=== PATIENT | female | born 1930 | race Caucasian/White ===

== ENCOUNTER 2017-09-20 19:28 | Emergency (ER) | payer MEDICARE ==
[2017-09-20 20:59] LABS: #Basophils 0.1 thou/uL (0.0-0.2); #Eosinphils 0.4 thou/uL (0.0-0.7); #Monocytes 0.6 thou/uL (0.11-0.59); %Basophils 0.9 % (0.0-1.0); %Eosinophils 4.4 % (0.0-10.0); %Lymphocytes 24.6 % (21.0-51.0); %Monocytes 7.7 % (0.0-10.0); %Neutrophils 62.3 % (42.0-75.0); Hemoglobin 10.9 g/dL (12.0-16.0); Mean Corpuscular HGB CONC 33.3 g/dL (32.0-36.0); Mean Corpuscular Hemoglobin 30.8 pg (27.0-31.0); Mean Corpuscular Volume 92.2 fl (81.0-99.0); Mean Platelet Volume 6.9 fL (7.4-10.4); Platelet Count 322 thou/uL (130-400); RBC Distribution Width 12.6 % (11.5-14.5); Red Blood Cell (RBC) Count 3.55 mill/uL (4.20-5.40)
--- NOTE | 2017-09-20 21:07 | RAD ---
RIGHT SHOULDER TWO VIEWS: 09/20/17 HISTORY: Fall. There is a fracture involving the greater tuberosity and humeral neck and it appears to have a spiral type component that extends into the proximal humeral shaft. I am not certain whether this component may be related to an older injury. IMPRESSION: Greater tuberosity and humeral neck fracture. Also with a spiral type fracture of the proximal rocio l shaft. This part of the fracture may be older related to an older injury, although may be part of t he acute fracture. POS: [facility]
--- NOTE | 2017-09-20 21:10 | CT ---
CT OF BRAIN PERFORMED WITHOUT CONTRAST ENHANCEMENT: 09/20/17 HISTORY: Fall with head injury. There is generalized ventricular and sulcal prominence. There is decreased attenuation of the periven tricular white matter consistent with chronic white change. There is no signs of intracerebral hemorr adamaris or extra-axial fluid collections. Mastoid air cells and visualized sinuses are clear. IMPRESSION: No acute intracranial abnormality. POS: [facility]
[2017-09-20 21:17] LABS: ALT (SGPT) 14 U/L (8-55); AST (SGOT) 20 U/L (5-34); Albumin 4.2 g/dL (3.4-4.8); Alkaline Phosphatase 67 U/L (40-150); Anion Gap 14 mmol/L (10-20); BUN (Urea Nitrogen) 26 mg/dL (9.8-20.1); Bilirubin, Total 0.3 mg/dL (0.2-1.2); Calc. Creatinine Clearance 0 mL/min (70-130); Calcium 9.2 mg/dL (7.8-10.44); Carbon Dioxide 27 mmol/L (23-31); Chloride 104 mmol/L (98-107); Estimated GFR-MDRD 39; Globulin 2.8 g/dL (2.4-3.5); Glucose 145 mg/dL (83-110); Potassium 3.6 mmol/L (3.5-5.1); Sodium 141 mmol/L (136-145)
--- NOTE | 2017-09-20 21:38 | CT ---
CT OF CERVICAL SPINE PERFORMED WITHOUT CONTRAST ENHANCEMENT: 09/20/17 HISTORY: Neck pain status post fall. There is marked kyphotic deformity at the cervicothoracic junction. Bones are demineralized. Vertebra l bodies maintain fairly normal height. There is disc narrowing most pronounced at C5-6, C6-7 and C7- T1. There is anterolisthesis of C3 on C4, C4 on C5 and C5 on C6 which appears to be on the basis of d egenerative facet changes. There is no significant central canal stenosis and no CT evidence for frac ture. IMPRESSION: Marked arthritic changes of the spine. No acute injury. POS: [facility]
[2017-09-20] MEDS ORDERED: HYDROcodone/Acetaminophen 5/325 mg Tablet ONE (22:25)
== END 2017-09-20 22:14 | disposition home or self-care (01) ==
LOC: ERS 19:28
DX: S42.251A Displaced fracture of greater tuberosity of right humerus, initial encounter for closed fracture (principal); S42.211A Unspecified displaced fracture of surgical neck of right humerus, initial encounter for closed fracture; S42.341A Displaced spiral fracture of shaft of humerus, right arm, initial encounter for closed fracture; K21.9 Gastro-esophageal reflux disease without esophagitis; I10 Essential (primary) hypertension; W01.0XXA Fall on same level from slipping, tripping and stumbling without subsequent striking against object, initial encounter
CPT/HCPCS: 36415; 70450; 72125; 80053; 85025

== ENCOUNTER 2017-09-25 09:29 | Inpatient (IN) | payer MEDICARE ==
[2017-09-25] MEDS ORDERED: Fentanyl 100 MCG/2 ML VIAL ONE (09:53)
[2017-09-25] MEDS ORDERED: Lorazepam 2 MG/ML VIAL ONE (09:53)
[2017-09-25] MEDS ORDERED: Clindamycin/D5W 900 mg/50 ml Premix Bag ONE (09:53)
[2017-09-25 10:24] LABS: #Eosinphils 0.1 thou/uL (0.0-0.7); #Lymphocytes 1.6 thou/uL (1.20-3.40); #Monocytes 1.2 thou/uL (0.11-0.59); #Neutrophils 7.8 thou/uL (1.40-6.50); %Basophils 0.3 % (0.0-1.0); %Eosinophils 0.6 % (0.0-10.0); %Lymphocytes 15.4 % (21.0-51.0); %Neutrophils 72.8 % (42.0-75.0); Hemoglobin 8.5 g/dL (12.0-16.0); Mean Corpuscular HGB CONC 33.9 g/dL (32.0-36.0); Mean Corpuscular Hemoglobin 31.5 pg (27.0-31.0); Mean Corpuscular Volume 92.7 fl (81.0-99.0); Mean Platelet Volume 6.8 fL (7.4-10.4); Platelet Count 327 thou/uL (130-400); RBC Distribution Width 12.3 % (11.5-14.5); Red Blood Cell (RBC) Count 2.69 mill/uL (4.20-5.40); White Blood Cell (WBC) Count 10.6 thou/uL (4.8-10.8)
[2017-09-25 10:47] LABS: ALT (SGPT) 12 U/L (8-55); AST (SGOT) 16 U/L (5-34); Albumin 3.5 g/dL (3.4-4.8); Alkaline Phosphatase 52 U/L (40-150); Anion Gap 14 mmol/L (10-20); BUN (Urea Nitrogen) 25 mg/dL (9.8-20.1); Bilirubin, Total 0.9 mg/dL (0.2-1.2); Calc. Creatinine Clearance 0 mL/min (70-130); Calcium 8.8 mg/dL (7.8-10.44); Carbon Dioxide 25 mmol/L (23-31); Chloride 103 mmol/L (98-107); Estimated GFR-MDRD 44; Globulin 3.4 g/dL (2.4-3.5); Glucose 101 mg/dL (83-110); Potassium 3.8 mmol/L (3.5-5.1); Protein, Total 6.9 g/dL (6.0-8.3); Sodium 138 mmol/L (136-145)
--- NOTE | 2017-09-25 11:41 | PDOC.FPRHP ---
- History of Present Illness Chief Complaint: arm pain and redness History of Present Illness: Patient is an 87yo F who presents to ED after a fall on 09/20 where she sustained a humeral neck fracture. She had an outpatient appt scheduled with Dr. Asif tomorrow 09/26, but was having worsening pain and redness that started yesterday. History is provided by daughter at bedside, because patient was given Fentanyl by ED and is very drowsy at the time of interview. Daughter is not aware of any fevers at home, no N/V, or any other complaints reported to her. She reports at baseline, patient is able to perform ADLs on her own, AOx4 , and lives alone. She doesn't use any walking aid for mobility. ED Course: In the ED she was given Fentanyl 100mcg, 1mg Ativan, 500ml NS, and Clindamycin 900mg IV. - Allergies/Adverse Reactions Allergies Allergy/AdvReac Type Severity Reaction Status Date / Time Penicillins Allergy Unknown Rash Verified 01/14/16 16:12 - Home Medications Medication Instructions Recorded Confirmed Type Amlodipine Besylate [amLODIPine 5 mg PO DAILY 01/14/16 09/25/17 History Besylate] Aspirin [Aspirin EC] 81 mg PO DAILY 01/14/16 09/25/17 History Esomeprazole Magnesium [NexIUM] 40 mg PO DAILY 01/14/16 09/25/17 History Fenofibrate [Tricor] 48 mg PO HS 01/14/16 09/25/17 History Metoprolol Tartrate 12.5 mg PO BID 01/14/16 09/25/17 History Ca/D3/Mag/Zinc/Joana/Andrew/MgBor 1 tablet PO DAILY 09/25/17 09/25/17 History [Caltrate 600+D3+Minerals Chewable Tablet] Vit 75/Iron/Folic/Om3 1 each PO DAILY 09/25/17 09/25/17 History [One A Day DHA Pack] - History PMHx: 1. OA 2. Ringworm 3. Seasonal Allergies 4. Venous Insufficiency 5. CKD3 6. GERD 7. Mixed HLD 8. HTN PSHx: none FHx: noncontributory Social: Lives at home by herself. Gets around without cane or walker. Performs ADLs by herself. No hx of tobacco, alcohol, or drug use. PCP: Dr. Lichorad - Review of Systems General: denies: fever/chills, weight/appetite/sleep changes Eyes: denies: eye pain ENT: denies: nasal congestion, rhinorrhea Respiratory: denies: cough, congestion, shortness of breath Cardiovascular: denies: chest pain, palpitation Gastrointestinal: denies: nausea, vomiting, diarrhea Skin: reports: rashes, itching Musculoskeletal: reports: pain, tenderness, swelling, arthritis/arthralgias Neurological: denies: numbness, syncope, seizure, weakness Psychological: denies: anxiety, depression - Vital signs BP: 141/55 HR: 92 RR: 24 Tmax: 100.1 Pox: 99% on RA Wt: 43kg - Physical Exam -Constitutional: drowsy, arouses with moderate effort HEENT: normocephalic and atraumatic, MMM Neck: supple, FROM Chest: no-tender to palpation Heart: RRR, normal S1/S2 Lungs: CTAB, no respiratory distress, good air movement, no wheezing, no retractions Abdomen: soft, non-tender, bowel sounds present -Musculoskeletal: R arm in sling, significant echymosis along R shoulder and upper arm. R knee with R hematoma anteriorly and echymosis along posterior knee that is ttp. Neurological: no focal deficit -Skin: Erythematous well defined area on R anterior antecubital space and extending posteriorly and down lower arm. Warm to touch. No open wounds or drainage noted. -Psychiatric: drowsy FMR H&P: Results - Labs Result Diagrams: 09/25/17 10:08 09/25/17 10:08 Lab results: WBC 10.6 thou/uL (4.8-10.8) 09/25/17 10:08 Hgb 8.5 g/dL (12.0-16.0) L 09/25/17 10:08 Hct 24.9 % (36.0-47.0) L 09/25/17 10:08 MCV 92.7 fl (81.0-99.0) 09/25/17 10:08 Plt Count 327 thou/uL (130-400) 09/25/17 10:08 Neutrophils % 72.8 % (42.0-75.0) 09/25/17 10:08 Sodium 138 mmol/L (136-145) 09/25/17 10:08 Potassium 3.8 mmol/L (3.5-5.1) 09/25/17 10:08 Chloride 103 mmol/L (98-107) 09/25/17 10:08 Carbon Dioxide 25 mmol/L (23-31) 09/25/17 10:08 BUN 25 mg/dL (9.8-20.1) H 09/25/17 10:08 Creatinine 1.16 mg/dL (0.6-1.1) H 09/25/17 10:08 Glucose 101 mg/dL (83-110) 09/25/17 10:08 Lactic Acid 1.1 mmol/L (0.5-2.2) 09/25/17 10:08 Calcium 8.8 mg/dL (7.8-10.44) 09/25/17 10:08 Total Bilirubin 0.9 mg/dL (0.2-1.2) 09/25/17 10:08 AST 16 U/L (5-34) 09/25/17 10:08 ALT 12 U/L (8-55) 09/25/17 10:08 Alkaline Phosphatase 52 U/L (40-150) 09/25/17 10:08 Serum Total Protein 6.9 g/dL (6.0-8.3) 09/25/17 10:08 Albumin 3.5 g/dL (3.4-4.8) 09/25/17 10:08 - Radiology Interpretation Other Status: image reviewed by me, pending Additional comment: R elbow XR: report pending, but evidence of soft tissue swelling in antecubital skin area, no fractures noted R humerus: report pending, but shows healing nondisplaced humeral neck fracture , improved from XR on 09/20. FMR H&P: A/P - Problem List (1) Cellulitis Current Visit: No Status: Acute Code(s): L03.90 - CELLULITIS, UNSPECIFIED (2) Humeral fracture Current Visit: No Status: Acute Code(s): S42.309A - UNSP FRACTURE OF SHAFT OF HUMERUS, UNSP ARM, INIT (3) Knee pain Current Visit: No Status: Acute Code(s): M25.569 - PAIN IN UNSPECIFIED KNEE (4) History of recent fall Current Visit: No Status: Acute Code(s): Z91.81 - HISTORY OF FALLING (5) Hyperlipidemia Current Visit: No Status: Acute Code(s): E78.5 - HYPERLIPIDEMIA, UNSPECIFIED (6) Ringworm Current Visit: No Status: Acute Code(s): B35.9 - DERMATOPHYTOSIS, UNSPECIFIED (7) CKD (chronic kidney disease) stage 3, GFR 30-59 ml/min Current Visit: No Status: Acute Code(s): N18.3 - CHRONIC KIDNEY DISEASE, STAGE 3 (MODERATE) (8) GERD (gastroesophageal reflux disease) Current Visit: No Status: Acute Code(s): K21.9 - GASTRO-ESOPHAGEAL REFLUX DISEASE WITHOUT ESOPHAGITIS (9) HTN (hypertension) Current Visit: No Status: Acute Code(s): I10 - ESSENTIAL (PRIMARY) HYPERTENSION (10) Osteoarthritis Current Visit: No Status: Acute Code(s): M19.90 - UNSPECIFIED OSTEOARTHRITIS , UNSPECIFIED SITE - Plan Cellulitis - continue IV Clindamycin. Will sana area on skin to monitor for regression of erythema. - blood cultures pending - s/p 500ml NS, patient tolerating PO, no signs of sepsis at this time. Afebrile, normal WBC, and normal LA. - repeat CBC tomorrow R Humeral neck fx 2/2 recent fall - Consult ortho. Was to see Dr. Asif in clinic tomorrow. - PT/OT - Scheduled Tylenol for pain with IV morphine for breakthrough R Knee pain with Hematoma - XR to evaluate for possible knee fracture Anemia - likely 2/2 bleedign from recent trauma, evidenced by hematomas - start Fe 325 and Vit C as well as Colace Ringworm - being treated with Terbinafine outpatient, on day 13 of 14. - continue today and d/c tomorrow - no evidence on exam CKD3 - at baseline - continue home meds - avoid nephrotoxic agents GERD - continue home Nexium HLD - continue home Tricor and ASA HTN - continue home Metoprolol and Amlodipine - missed morning dose, evidenced by elevated pressure at this time - continue to monitor. OA - Continue home Tylenol for pain Dispo: Likely stay in the hospital for 2 days for IV abx. Plan to touch base with Dr. Asif for dispo on fracture. VTE PPx: SCDs, patient is fall risk Code status: DNR FMR H&P: Upper Level - Pertinent history 87 yo F with PMH of HTN, HLD here with worsening redness and pain of right shoulder. Fall from standing on 09/20/17, sustained proximal humeral neck fracture and was sent home from ER with sling and Tylenol #3, with instructions to follow up with Orthopedics. Has an appt with them on 09/26, but returned to ER due to worsening pain and redness. Skin is broken on posterior R elbow, redness has been spreading from this site over upper anterior forearm. Has had subjective fevers at home. Temp 100.1 in the ER today. Pt somnolent on exam due to having just received 100mcg of fentanyl in ED. - Pertinent findings PE: T: 10.1 P: 92 BP: 141/55 RR: 24 99% Gen: [place] somnolent female in NAD HEENT: PERRL, EOMI, MMM, no lymphadenopathy or thyromegaly CV: RRR no murmurs, distal pulses intact Pulm: CTAB, no wheezes or rhonchi Abd: soft, NT/ND, BS present, no masses or distention Ext: bruising over R shoulder extending down to axilla and antecubital fossa; redness and warmth noted over upper R forearm circumferentially, pulses intact MSK: in sling, minimal movement 2/2 pain Neuro: CN 2-12 intact, normal sensation Psych: A&O x3, appropriate in conversation - Plan Date/Time: 09/25/17 1136 87 yo F here with RUE pain and redness 1) R humerus fracture: Will consult Ortho in the AM, as she was scheduled to see them as outpt. Schedule tylenol and add prn pain relief. 2) Cellulitis: Will continue clindamycin, monitor progression of redness 3) HTN: Continue home medications I, [Santos Davis], have evaluated this patient and agree with findings/plan as outlined by fall internship resident. Pertinent changes/additions are listed here. Attending Addendum - Attending Addendum Date/Time: 09/25/17 [id number] I personally evaluated the patient and discussed the management with Dr. Billingsley/ Ryan. I agree with the History, Examination, Assessment and Plan documented above with any addition or exceptions noted below. Patient with history of osteoporosis here a few days after a fall at home. Patient was diagnosed with humerus fracture at time of event and was to follow up with orthopedics physician tomorrow. At the time of the accident, she had some skin tears in the area as well as diffuse bruising on her R side. Over the last day, she had noted increasing redness, pain, and warmth in the area of the R elbow. She has had low grade temperatures. On exam, she has diffuse soreness, she is very groggy currently due to ERMD giving 100mcg of Fentanyl. She has well demarcated area of redness on the R arm, just distal to elbow, interspaced between ecchymosis. She has some mild R knee swelling and bruising. Her WBC is normal, and no evidence of systemic infection at this time. She will be admitted for IV clindamycin therapy. Will sana area of redness to monitor progression/regression. PT while in house. Will consult Ortho to see if any further mgmt is needed of her fracture, though on XR it appears to be fairly anatomic with good healing. We will obtain XR of the knee to see if she has any bony deformity of that joint. Anticipate 2-3 days hospitalization with eventual transition to PO antibiotics.
[2017-09-25] MEDS ORDERED: Ondansetron ODT 4 MG TAB SL PRN (11:59)
[2017-09-25] MEDS ORDERED: Morphine 4 MG/ML VIAL SLOW IVP PRN ×2 (11:59→12:26)
[2017-09-25] MEDS ORDERED: Ondansetron HCl/PF 4 MG/2 ML Vial IVP PRN (11:59)
[2017-09-25] MEDS ORDERED: Milk Of Magnesia 30 ML UDCUP PO PRN (12:14)
[2017-09-25 12:44] VITALS: BMI 18.1
--- NOTE | 2017-09-25 12:58 | RAD ---
RIGHT HUMERUS 2 VIEWS: History Fall. Trauma. Pain. COMPARISON: 09/20/17. FINDINGS: There is a mildly displaced comminuted fracture involving the grater tuberosity. Additional displace d spiral fracture of the proximal humeral diaphysis is noted. IMPRESSION: Two separate fractures involving the right humerus. POS: [facility]
--- NOTE | 2017-09-25 12:59 | RAD ---
THREE VIEWS RIGHT ELBOW: DATE: 09/25/17. HISTORY: Trauma. Patient diagnosed with broken arm on Tuesday. FINDINGS: No acute fracture or dislocation is seen involving the right elbow. There are osseous densities seen at the lateral aspect of the right elbow also seen on the prior study on 03/01/05 and findings are l ikely related to prior injury. There has been no significant interval change from the prior study. There is subcutaneous soft tissue swelling seen at the dorsal aspect of the proximal right forearm an d at the level of the elbow. IMPRESSION: 1. Subcutaneous soft tissue swelling without evidence of an acute fracture involving the right elbow . 2. Findings likely related to remote injury at the lateral right elbow. POS: [facility]
[2017-09-25] MEDS: Acetaminophen 500 MG TAB PO SCH ×2 (14:13→21:33)
--- NOTE | 2017-09-25 16:06 | RAD ---
4 VIEWS RIGHT KNEE: Date: 09/25/17 HISTORY: Right knee pain after injury. COMPARISON: 04/25/14. FINDINGS: There is no evidence of a fracture or dislocation involving the right knee. No joint space narrowing is seen. Calcifications again overlie both the medial and lateral joint compartments related to chond rocalcinosis. Minimal amount of joint fluid is present in a suprapatellar location, likely physiologi c in origin. No other interval change from prior study. IMPRESSION: 1. No acute osseous abnormality right knee. 2. Chondrocalcinosis. POS: [facility]
[2017-09-25] MEDS: Ferrous Sulfate 325 MG TAB PO SCH (17:29)
[2017-09-25] MEDS ORDERED: Clindamycin/D5W 900 MG in Premix Bag 1 BAG IVPB SCH (18:00)
[2017-09-25] MEDS: Clindamycin/D5W 900 MG in Premix Bag 1 BAG IVPB SCH (21:32)
[2017-09-25] MEDS: Fenofibrate 48 MG TAB PO SCH (21:32)
[2017-09-25] MEDS: Metoprolol Tartrate 25 MG TAB PO SCH (21:32)
[2017-09-25] MEDS: Docusate 100 MG CAP PO SCH (21:33)
[2017-09-25] MEDS: Terbinafine 1% 30 GM TUBE TOP SCH (21:39)
[2017-09-26] MEDS: Clindamycin/D5W 900 MG in Premix Bag 1 BAG IVPB SCH ×3 (03:55→20:14)
[2017-09-26 04:50] LABS: #Eosinphils 0.2 thou/uL (0.0-0.7); #Lymphocytes 1.7 thou/uL (1.20-3.40); #Monocytes 0.7 thou/uL (0.11-0.59); #Neutrophils 4.3 thou/uL (1.40-6.50); %Basophils 0.5 % (0.0-1.0); %Eosinophils 2.7 % (0.0-10.0); %Lymphocytes 24.6 % (21.0-51.0); %Monocytes 10.5 % (0.0-10.0); %Neutrophils 61.6 % (42.0-75.0); Hemoglobin 7.8 g/dL (12.0-16.0); Mean Corpuscular HGB CONC 32.2 g/dL (32.0-36.0); Mean Corpuscular Hemoglobin 29.9 pg (27.0-31.0); Mean Corpuscular Volume 92.9 fl (81.0-99.0); Mean Platelet Volume 7.1 fL (7.4-10.4); Platelet Count 345 thou/uL (130-400); RBC Distribution Width 12.3 % (11.5-14.5); Red Blood Cell (RBC) Count 2.61 mill/uL (4.20-5.40)
[2017-09-26] MEDS: Acetaminophen 500 MG TAB PO SCH ×3 (05:30→20:14)
--- NOTE | 2017-09-26 05:44 | PDOC.FM ---
- Subjective Subjective: Arash Zambrano seen at bedside this morning. She had no acute events overnights. She has no complaints this morning. She denies any fever, chills, chest pain, dyspnea, n/v. - Objective MAR Reviewed: Yes Vital Signs & Weight: Vital Signs (12 hours) Temp Pulse Resp BP Pulse Ox 09/26/17 04:15 98.2 F 74 18 122/63 95 09/25/17 23:33 98.0 F 73 18 123/68 96 09/25/17 20:00 98.3 F 79 18 96 09/25/17 19:21 98.3 F 79 18 118/67 96 Result Diagrams: 09/26/17 03:53 09/25/17 10:08 Phys Exam - Physical Examination Constitutional: NAD HEENT: moist MMs, sclera anicteric Neck: no JVD, supple, full ROM Respiratory: no wheezing, no rales, no rhonchi, clear to auscultation bilateral Cardiovascular: RRR, no significant murmur Gastrointestinal: soft, non-tender, no distention Musculoskeletal: no edema, pulses present Neurological: non-focal, normal sensation Psychiatric: normal affect, A&O x 3 Skin: no rash, normal turgor Dx/Plan (1) Normocytic anemia Code(s): D64.9 - ANEMIA, UNSPECIFIED Status: Acute (2) CKD (chronic kidney disease) stage 3, GFR 30-59 ml/min Code(s): N18.3 - CHRONIC KIDNEY DISEASE, STAGE 3 (MODERATE) Status: Acute (3) Cellulitis Code(s): L03.90 - CELLULITIS, UNSPECIFIED Status: Acute (4) GERD (gastroesophageal reflux disease) Code(s): K21.9 - GASTRO-ESOPHAGEAL REFLUX DISEASE WITHOUT ESOPHAGITIS Status: Acute (5) HTN (hypertension) Code(s): I10 - ESSENTIAL (PRIMARY) HYPERTENSION Status: Acute (6) Humeral fracture Code(s): S42.309A - UNSP FRACTURE OF SHAFT OF HUMERUS, UNSP ARM, INIT Status: Acute (7) Hyperlipidemia Code(s): E78.5 - HYPERLIPIDEMIA, UNSPECIFIED Status: Acute (8) Knee pain Code(s): M25.569 - PAIN IN UNSPECIFIED KNEE Status: Acute (9) Osteoarthritis Code(s): M19.90 - UNSPECIFIED OSTEOARTHRITIS, UNSPECIFIED SITE Status: Acute (10) Ringworm Code(s): B35.9 - DERMATOPHYTOSIS, UNSPECIFIED Status: Acute - Plan Plan: (1) Cellulitis - continue IV Clindamycin. Will sana area on skin to monitor for regression of erythema. - blood cultures pending, no growth to date - s/p 500ml NS, patient tolerating PO, no signs of sepsis at this time. Afebrile, normal WBC, and normal LA. - repeat CBC tomorrow (2) R Humeral neck fx 2/2 recent fall - Will consult Dr. Asif today as she had an OP appt with him today - PT/OT - Scheduled Tylenol for pain with IV morphine for breakthrough (3) R Knee pain with Hematoma - XR to evaluate for possible knee fracture (4) Anemia - likely 2/2 bleeding from recent trauma, evidenced by hematomas - start Fe 325 and Vit C as well as Colace (5) Ringworm - being treated with Terbinafine outpatient, on day 14 of 14. - continue today and d/c tomorrow - no evidence on exam (6) CKD3 - at baseline - continue home meds - avoid nephrotoxic agents (7) GERD - continue home Nexium (8) HLD - continue home Tricor and ASA (9) HTN - continue home Metoprolol and Amlodipine - missed morning dose, evidenced by elevated pressure at this time - continue to monitor. (10) OA - Continue home Tylenol for pain
[2017-09-26] MEDS: Metoprolol Tartrate 25 MG TAB PO SCH ×2 (09:33→20:15)
[2017-09-26] MEDS: Amlodipine 5 MG TAB PO SCH (09:34)
[2017-09-26] MEDS: Terbinafine 1% 30 GM TUBE TOP SCH ×2 (11:41→20:16)
[2017-09-26] MEDS: Docusate 100 MG CAP PO SCH ×2 (11:42→20:16)
[2017-09-26] MEDS: Ferrous Sulfate 325 MG TAB PO SCH ×2 (11:42→16:41)
[2017-09-26] MEDS: Aspirin 81 mg Enteric Coated Tablet PO SCH (11:42)
[2017-09-26] MEDS: Lactinex Tablet PO SCH (11:43)
[2017-09-26] MEDS: Ascorbic Acid 500 mg Chewable Tablet PO SCH (11:43)
--- NOTE | 2017-09-26 14:27 | ADD-PRG ---
DATE OF SERVICE: 09/26/2017 This is an addendum to the note of Dr. Osman Gauthier. Ms. Zambrano was admitted with a right humeral neck fracture and we are awaiting orthopedic input. Kevin dimas also has cellulitis of her right upper extremity is likely secondary to an abrasion of her right el bow that occurred during a fall that broke her arm. In the event, she is on IV antibiotics and clini jaime is improving. We will await the recommendations of Orthopedics.
[2017-09-26] MEDS: Fenofibrate 48 MG TAB PO SCH (20:15)
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
[2017-09-27] MEDS: Clindamycin/D5W 900 MG in Premix Bag 1 BAG IVPB SCH (04:35)
[2017-09-27] MEDS: Acetaminophen 500 MG TAB PO SCH (04:37)
[2017-09-27 04:49] LABS: #Eosinphils 0.3 thou/uL (0.0-0.7); #Lymphocytes 1.2 thou/uL (1.20-3.40); #Monocytes 0.6 thou/uL (0.11-0.59); #Neutrophils 3.5 thou/uL (1.40-6.50); %Basophils 0.7 % (0.0-1.0); %Eosinophils 5.4 % (0.0-10.0); %Lymphocytes 21.1 % (21.0-51.0); %Monocytes 10.6 % (0.0-10.0); %Neutrophils 62.3 % (42.0-75.0); Hemoglobin 7.7 g/dL (12.0-16.0); Mean Corpuscular HGB CONC 33.2 g/dL (32.0-36.0); Mean Corpuscular Hemoglobin 30.7 pg (27.0-31.0); Mean Corpuscular Volume 92.4 fl (81.0-99.0); Mean Platelet Volume 6.8 fL (7.4-10.4); Platelet Count 385 thou/uL (130-400); RBC Distribution Width 12.2 % (11.5-14.5); Red Blood Cell (RBC) Count 2.49 mill/uL (4.20-5.40); White Blood Cell (WBC) Count 5.7 thou/uL (4.8-10.8)
[2017-09-27] MEDS: Amlodipine 5 MG TAB PO SCH (07:57)
[2017-09-27] MEDS: Metoprolol Tartrate 25 MG TAB PO SCH (07:57)
[2017-09-27] MEDS: Aspirin 81 mg Enteric Coated Tablet PO SCH (07:58)
[2017-09-27] MEDS: Lactinex Tablet PO SCH (07:59)
[2017-09-27] MEDS: Docusate 100 MG CAP PO SCH (07:59)
[2017-09-27] MEDS: Ferrous Sulfate 325 MG TAB PO SCH (08:00)
[2017-09-27] MEDS: Terbinafine 1% 30 GM TUBE TOP SCH (08:00)
[2017-09-27] MEDS: Ascorbic Acid 500 mg Chewable Tablet PO SCH (08:00)
--- NOTE | 2017-09-27 08:03 | PDOC.FM ---
- Subjective Subjective: Arash Zambrano seen at bedside this morning. There were no acute events overnight. She has no questions or concerns this morning. She was cleared by Ortho yesterday with instructions to return home with a sling, supportive care and to follow up in 3-4 weeks. No surgical intervention indicated at this time. - Objective MAR Reviewed: Yes Vital Signs & Weight: Vital Signs (12 hours) Temp Pulse Resp BP BP BP Pulse Ox 09/27/17 07:57 84 178/58 H 09/27/17 07:05 98.1 F 84 20 178/58 H 93 L 09/27/17 04:34 97.8 F 60 20 127/67 96 Weight Admit Weight 43.681 kg Weight 43.681 kg I&O: 09/26/17 09/27/17 09/28/17 06:59 06:59 06:59 Intake Total 340 1060 Output Total 450 Balance -110 1060 Result Diagrams: 09/27/17 04:09 09/25/17 10:08 Phys Exam - Physical Examination Constitutional: NAD HEENT: moist MMs, sclera anicteric Neck: no JVD, supple, full ROM Respiratory: no wheezing, no rales, no rhonchi, clear to auscultation bilateral Cardiovascular: RRR, no significant murmur, no rub Gastrointestinal: soft, non-tender, no distention Musculoskeletal: no edema, pulses present Neurological: non-focal, normal sensation, moves all 4 limbs Psychiatric: normal affect, A&O x 3 Skin: no rash, normal turgor Dx/Plan (1) Normocytic anemia Code(s): D64.9 - ANEMIA, UNSPECIFIED Status: Acute (2) CKD (chronic kidney disease) stage 3, GFR 30-59 ml/min Code(s): N18.3 - CHRONIC KIDNEY DISEASE, STAGE 3 (MODERATE) Status: Acute (3) Cellulitis Code(s): L03.90 - CELLULITIS, UNSPECIFIED Status: Acute (4) GERD (gastroesophageal reflux disease) Code(s): K21.9 - GASTRO-ESOPHAGEAL REFLUX DISEASE WITHOUT ESOPHAGITIS Status: Acute (5) HTN (hypertension) Code(s): I10 - ESSENTIAL (PRIMARY) HYPERTENSION Status: Acute (6) Humeral fracture Code(s): S42.309A - UNSP FRACTURE OF SHAFT OF HUMERUS, UNSP ARM, INIT Status: Acute (7) Hyperlipidemia Code(s): E78.5 - HYPERLIPIDEMIA, UNSPECIFIED Status: Acute (8) Knee pain Code(s): M25.569 - PAIN IN UNSPECIFIED KNEE Status: Acute (9) Osteoarthritis Code(s): M19.90 - UNSPECIFIED OSTEOARTHRITIS, UNSPECIFIED SITE Status: Acute (10) Ringworm Code(s): B35.9 - DERMATOPHYTOSIS, UNSPECIFIED Status: Acute - Plan Plan: (1) Cellulitis - continue IV Clindamycin. No extension of erythema - blood cultures pending, no growth to date - s/p 500ml NS, patient tolerating PO, no signs of sepsis at this time. Afebrile, normal WBC, and normal LA. - repeat CBC tomorrow (2) R Humeral neck fx 2/2 recent fall - Consulted Dr. Poon yesterday, appreciate recs - Gio Hall saw patient, cleared for discharge. - PT/OT - Scheduled Tylenol for pain with IV morphine for breakthrough (3) R Knee pain with Hematoma - XR to evaluate for possible knee fracture (4) Anemia - likely 2/2 bleeding from recent trauma, evidenced by hematomas - start Fe 325 and Vit C as well as Colace (5) Tinea Corporis - being treated with Terbinafine outpatient, finished 14 day course yesterday - d/c today - no evidence on exam (6) CKD3 - at baseline - continue home meds - avoid nephrotoxic agents (7) GERD - continue home Nexium (8) HLD - continue home Tricor and ASA (9) HTN - continue home Metoprolol and Amlodipine - missed morning dose, evidenced by elevated pressure at this time - continue to monitor. (10) OA - Continue home Tylenol for pain
[2017-09-27 09:34] LABS: Iron 23 ug/dL (50-170); Iron Binding Capacity, Total 211 mcg/dL (265-497)
[2017-09-27 10:53] LABS: Reticulocyte Count 1.9 % (0.5-1.5)
[2017-09-27 11:28] LABS: Hemoglobin 7.9 g/dL (12.0-16.0); Mean Corpuscular HGB CONC 31.8 g/dL (32.0-36.0); Mean Corpuscular Volume 94.2 fl (81.0-99.0); Mean Platelet Volume 7.1 fL (7.4-10.4); Platelet Count 416 thou/uL (130-400); RBC Distribution Width 12.4 % (11.5-14.5); Red Blood Cell (RBC) Count 2.62 mill/uL (4.20-5.40); White Blood Cell (WBC) Count 5.3 thou/uL (4.8-10.8)
[2017-09-27 11:35] VITALS: BP 153/72; TEMP 98.3
[2017-09-27 12:14] LABS: Band 2 % (5-11); Eosinophils 2 % (0-10); Lymphocytes 20 % (21-51); MDiff Complete? YES; Monocytes 7 % (0-10); Neutrophil 69 % (42-75); PLT Morphology Comment Appears Increased; Polychromasia SLIGHT = 2-3 cells (100X) (0-2/hpf)
--- NOTE | 2017-09-27 13:28 | ADD-PRG ---
DATE OF SERVICE: 09/27/2017 ADDENDUM Please add this as an addendum to the note of Dr. Osman Gauthier. Ms. Zambrano was seen in consultation by orthopedics who recommended conservative management for her humeral fracture. She does not requi re surgery. She has a slight anemia and we will continue this workup as an outpatient. Her initial studies are consistent with an anemia of chronic disease given a low iron and low TIBC and elevated f erritin of 258.23. Some of this is delusional and some is blood loss from her recent fracture, but s he in the past has had a hemoglobin of around 10.
--- NOTE | 2017-09-27 16:10 | DIS-2 ---
DATE OF ADMISSION: 09/25/2017. DATE OF DISCHARGE: 09/27/2017. RESIDENT: Osman Gauthier MD. ADMITTING ATTENDING: Herson Chapman MD. DISCHARGE ATTENDING: Dez Adams MD. CONSULTATIONS: 1. Orthopedics on 09/26/2017, Cristopher Poon M.D. 2. PT, OT evaluation and treat on 09/25/2017. PROCEDURES: 1. Elbow x-ray on 09/25/2017. Impression, subcutaneous soft tissue swelling without evidence of an acute fracture involving the right elbow, findings likely related to remote injury at the lateral rig ht elbow. 2. Humerus x-ray. Impression, 2 separate fractures involving the right humerus. Mildly displaced c omminuted fracture involving the greater tuberosity. Additional displaced spiral fracture of the pro ximal humeral diaphysis is noted. 3. Knee x-ray on 09/25/2017. Impression, no acute osseous abnormality of the right knee, chondrocalc inosis. PRIMARY DIAGNOSES: 1. Cellulitis of the right arm. 2. Right humeral neck fracture status post fall. SECONDARY DIAGNOSES: 1. Hypertension. 2. Tinea corporis. 3. Hyperlipidemia. 4. Osteoarthritis. 5. Gastroesophageal reflux disease. 6. Chronic kidney disease stage 3. DISCHARGE MEDICATIONS: Resume home medications includin. Amlodipine besylate 5 mg p.o. daily. 2. Metoprolol tartrate 12.5 mg p.o. b.i.d. 3. Aspirin 81 mg p.o. daily. 4. Esomeprazole magnesium 40 mg p.o. daily. 5. Fenofibrate 48 mg p.o. at bedtime. 6. vitamin 1 each p.o. daily. 7. Calcium and vitamin D 1 tablet p.o. daily. New home medications: 1. Vitamin C 1000 mg p.o. daily. 2. Clindamycin 300 mg p.o. q.6 hour for 10 more days. 3. Lactobacillus 1 tab p.o. daily. HISTORY OF PRESENT ILLNESS/HOSPITAL COURSE: Arash Zambrano is an 87-year-old female with past medica l history of hypertension, hyperlipidemia, osteoarthritis, CKD stage III, who presented to the ED aft er a fall on 09/20 where she sustained a humeral neck fracture. She had an outpatient appointment sc heduled with Dr. Asif for 09/26/2017, but was having worsening pain and redness that started one day prior to admission. Daughter was with the patient on admission and was not aware of any fevers at home, any nausea or vomiting or any other complaints. The patient lives at home alone and she is able to perform her ADLs on her own. She is A and O x4 at baseline. She does not use any walking ai d for mobility. In the ED, she was given fentanyl 100 mcg, 1 mg Ativan, 500 mL normal saline, clinda mycin 900 mg in her IV. The patient was admitted for right arm cellulitis. IV clindamycin was prabhjot nued. Blood cultures were taken. [facility] Dr. Poon was consulted because Dr. Asif was out. The patient was seen and Ortho recommended a sling for right humeral neck fracture and fol lowing up in 3-4 weeks with Orthopedics outpatient. The patient's cellulitis improved with IV clinda mycin. White blood cell count from admission to discharge went from 10.6 to 5.7, hemoglobin on admis marcellus was 8.5, was stabilized to 7.7. It was a normocytic anemia, likely secondary to extensive ecchy mosis from fall. No obvious signs of active bleeding or hemodynamic instability. The patient was cl ear and stable for discharge on 09/27/2017 with instructions to follow up with Dr. Lourdes Roman, her primary care provider within 3 days as well as Orthopedics in 3-4 weeks. 10 days of oral clindamyci n were sent to the pharmacy that the patient to continue treatment for her right arm cellulitis. Blo od culture showed no growth to date on the day of discharge. DISPOSITION: Stable. The patient should do well if she continues her outpatient antibiotics and fol lows up with Orthopedics as well as her primary care provider, Dr. Lourdes Roman. DISCHARGE INSTRUCTIONS: 1. Location: Home. 2. Diet: No restrictions. 3. Activity: As tolerated, but right arm must be nonweightbearing. 4. Follow up with Dr. Lourdes Roman within 3 days and follow up with Orthopedics in 3-4 weeks.
== END 2017-09-27 12:15 | disposition home or self-care (01) | DRG 603 ==
LOC: ERS 09:29 → T4-B 11:53
PROVIDERS: ADMIT Student in an Organized Health Care Education/Training Program; ATTEND Student in an Organized Health Care Education/Training Program
DX: L03.114 Cellulitis of left upper limb (principal); S42.309A Unspecified fracture of shaft of humerus, unspecified arm, initial encounter for closed fracture; N18.3 Chronic kidney disease, stage 3 (moderate); K21.9 Gastro-esophageal reflux disease without esophagitis; E78.5 Hyperlipidemia, unspecified; M19.90 Unspecified osteoarthritis, unspecified site; B35.4 Tinea corporis; I12.9 Hypertensive chronic kidney disease with stage 1 through stage 4 chronic kidney disease, or unspecified chronic kidney disease; J30.2 Other seasonal allergic rhinitis; Z79.899 Other long term (current) drug therapy; Z79.82 Long term (current) use of aspirin; B35.9 Dermatophytosis, unspecified; D50.9 Iron deficiency anemia, unspecified; M25.569 Pain in unspecified knee; W19.XXXA Unspecified fall, initial encounter
CPT/HCPCS: 36415; 80053; 82728; 83540; 83550; 83605; 85025; 85046; 85060; 87040; 96365; 96375; G8987-GO-CJ; G8988-GO-CI; J2060; J2270; J3010; J3490; Q0162